=== PATIENT | male | born 1970 | race Two or more races ===

== ENCOUNTER 2023-12-07 14:56 | Emergency (ER) | payer BC ==
[~2023-12-07] VITALS: Ht 188 cm; Wt 86.2 kg
[2023-12-07] MEDS ORDERED: METFORMIN HCL500 M3 (15:13)
[2023-12-07] MEDS ORDERED: CRESTOR40 MG PO (15:14)
[2023-12-07 16:08] LABS: PH,URINE 5.5 (5.0-8.0); URINE APPEARANCE Clear; URINE BILIRRUBIN Negative (NEGATIVE); URINE BLOOD Large; URINE COLOR Yellow; URINE GLUCOSE Negative (NEGATIVE); URINE KETONE Negative (NEGATIVE); URINE LEUKOCYTE Moderate; URINE NITRATE Negative; URINE PROTEIN Negative (NEGATIVE); URINE UROBILINOGEN 0.2 E.U./dl
[2023-12-07 16:12] LABS: URINE BACTERIA 57.9 uL (0.0-1933); URINE EPITHELIAL CELLS 4.1 uL (0.0-38.8); URINE RBC 24.4 uL (0.0-20.8); URINE WBC 475.9 uL (0.0-23.2)
[2023-12-07 16:13] LABS: HEMOGLOBIN 12.9 g/dL (13-16.00); MEAN CELL VOLUME 71.4 fL (80.0-100.00); MEAN CORPUSCULAR HEMOGLOBIN 22.5 pg (27.00-32.0); MEAN CORPUSCULAR HGB CONC 31.5 g/dl (32.0-36.0); PLATELET COUNT 244 K/uL (150-450); RED BLOOD COUNT 5.74 M/uL (4.00-6.00)
[2023-12-07] MEDS ORDERED: CIPRO500 MG PO (16:58)
[2023-12-07] MEDS ORDERED: AZOR 10-20 MG1 EACH PO (16:59)
== END 2023-12-07 17:36 | disposition home or self-care (01) ==
LOC: ER 14:57
DX: N39.0 Urinary tract infection, site not specified (principal); Z20.822 Contact with and (suspected) exposure to COVID-19